=== PATIENT | female | born 1960 | race Caucasian/White ===

== ENCOUNTER → 2020-02-27 | Day surgery (SDC) | payer BC ==
[~2020-02-27] MED LIST: AMBIEN10 MG; ARTHROTEC EC 51 EACH PO; ATENOLOL25 MG PO; CYMBALTA30 MG PO; DILTIAZEM 24HR120 M1 PO; FENTANYL CITRATE/PF 100MCG/2 ML INJ ONE; HUMIRA40 MG/0.8; HUMIRA40 MG/0.8 SC; HYDROCODON-ACE1 EAC9 PO; HYOSCYAMINE 0.125 MG TAB ONE; LIDOCAINE HCL 2% LOCAL INJ 5 ML SDV VIAL INJ ONE; LOVASTATIN40 MG; LYRICA25 MG PO; MIDAZOLAM HCL 2 MG/2 ML VIAL ONE; MULTI-VITAMIN1 EACH PO; PANTOPRAZOLE SO40 MG PO; PREDNISONE 10 MG; PROPOFOL IV EMULSION 10 MG/ML 20 ML VIAL ONE; SULFASALAZINE500 MG PO; SUMATRIPTAN-NA1 EACH PO; TIZANIDINE HCL4 MG PO; ULTRAM 50MG50 MG PO; ZETIA10 MG PO; nexium
[2020-02-27 09:00] VITALS: BP 117/85
--- NOTE | 2020-02-27 09:48 | Operative Report ---
DATE OF PROCEDURE: 02/27/2020 SURGEON: David Park MD PROCEDURE: Colonoscopy with polypectomy note. INDICATIONS FOR COLONOSCOPY: Surveillance colonoscopy, personal history of colon polyp. MEDICATIONS: The patient was done under MAC, please see anesthesiologist's note. PROCEDURE IN DETAIL: With the patient in left lateral decubitus position, the flexible fiberoptic Olympus colonoscope was inserted into the rectum with ease and advanced all the way to the cecum. It was then withdrawn slowly, mucosa overlying the cecum, ascending colon, transverse colon, descending colon appeared to be within normal limits. A minute polyp was removed per hot biopsy forceps from the proximal sigmoid colon. Some minimal diverticular disease was noted in the sigmoid colon. The rectum appeared to be within normal limits. The scope was then retroflexed into the distal rectum and moderate-sized internal hemorrhoids were noted, none of which was actively bleeding. The scope was then straightened out, it was subsequently withdrawn. The patient tolerated the procedure well. IMPRESSION: 1. Sigmoid colon polyp, hot biopsied. 2. Diverticulosis, sigmoid colon, minimal. 3. Internal hemorrhoids, none actively bleeding. PLAN: 1. Follow up histology. 2. Initiate high-fiber, low-fat diet. 3. Initiate high-fiber supplement. 4. The patient might benefit from a followup colonoscopy in 5 years. David Park MD [facility] – [place]/BIN /[id number] cc: Jareth Hope MD
== END | disposition home or self-care (01) ==
LOC: OR 05:55
PROVIDERS: ATTEND Internal Medicine Gastroenterology
DX: Z09 Encounter for follow-up examination after completed treatment for conditions other than malignant neoplasm (principal); K63.5 Polyp of colon; K57.30 Diverticulosis of large intestine without perforation or abscess without bleeding; K50.90 Crohn's disease, unspecified, without complications; K64.8 Other hemorrhoids; K21.9 Gastro-esophageal reflux disease without esophagitis; I10 Essential (primary) hypertension; M45.9 Ankylosing spondylitis of unspecified sites in spine; I49.3 Ventricular premature depolarization; F32.9 Major depressive disorder, single episode, unspecified; Z01.810 Encounter for preprocedural cardiovascular examination; Z01.812 Encounter for preprocedural laboratory examination; Z11.59 Encounter for screening for other viral diseases
CPT/HCPCS: 45384; 93005; J2001; J2250; J2704; J3010; U0002; 45378

== ENCOUNTER 2020-05-29 15:45 | Emergency (ER) | payer BC ==
[~2020-05-29] VITALS: Ht 160 cm; Wt 66.7 kg
[~2020-05-29 15:45] MED LIST changes: -FENTANYL CITRATE/PF 100MCG/2 ML INJ ONE; -HYOSCYAMINE 0.125 MG TAB ONE; -LIDOCAINE HCL 2% LOCAL INJ 5 ML SDV VIAL INJ ONE; -MIDAZOLAM HCL 2 MG/2 ML VIAL ONE; -PROPOFOL IV EMULSION 10 MG/ML 20 ML VIAL ONE
[2020-05-29] MEDS ORDERED: IBUPROFEN 600 MG TAB PO STA (16:01)
[2020-05-29] MEDS ORDERED: ACETAMINOPHEN 325 MG TAB PO ONE (16:15)
[2020-05-29] MEDS ORDERED: ZOFRAN4 MG SL (16:17)
[2020-05-29] MEDS ORDERED: IBUPROFEN 600 MG TAB ONE (16:17)
[2020-05-29] MEDS ORDERED: TYLENOL # 31 EA PO (16:17)
== END 2020-05-29 17:00 | disposition home or self-care (01) ==
LOC: ER 16:15
DX: U07.1 COVID-19 (principal); J12.82 Pneumonia due to coronavirus disease 2019
CPT/HCPCS: 99283

== ENCOUNTER → 2020-07-21 | Outpatient (CLI) | payer BC, OTHER ==
[~2020-07-21] MED LIST changes: +COVID-19 VACC, MRNA(MODERNA)/PF 100 MCG/0.5 ML VIAL IM ONE; +TYLENOL # 31 EA PO; +ZOFRAN4 MG SL
== END | disposition home or self-care (01) ==
LOC: VACCPMC 16:10
DX: Z23 Encounter for immunization (principal); Z20.822 Contact with and (suspected) exposure to COVID-19
CPT/HCPCS: 0011A; 91301